=== PATIENT | female | born 1930 | race Caucasian/White ===

== ENCOUNTER 2017-03-27 12:51 | Inpatient (IN) | payer OTHER ==
--- NOTE | 2017-03-27 13:03 | EDPHY ---
H & P Time Seen by Provider: 03/27/17 12:57 HPI/ROS: CHIEF COMPLAINT: Abdominal pain HISTORY OF PRESENT ILLNESS: This patient is an 87 year old female with history of diverticulosis arriving with her daughter complaining of upper abdominal pain and vomiting onset Monday , three days ago. She states she was initially seen in [place] over the weekend after multiple episodes of vomiting, and has been taking Zofran to control nausea. She states she had lab tests done, but is unsure of the results , and did not receive any imaging at that time. She states the pain has been constant, and describes it as a "burning" feeling in her midepigastric region, spreading to her lower abdomen with oral intake. She reports feeling bloated and "burpy", and states she has not been able to eat much and has not had a bowel movement since Monday. Her daughter at bedside states she had abnormally dark urine as well, which the patient describes as dark orange in color. She endorses low grade fever. She denies history of abdominal surgery, dysuria, or pain radiating to her back. REVIEW OF SYSTEMS: Constitutional: Fever. No chills Eyes: No visual changes ENT: No sore throat Respiratory: No cough, no shortness of breath Cardiac: No chest pain Gastrointestinal: Nausea, vomiting, abdominal pain Genitourinary: Dark orange urine. No hematuria, no dysuria Musculoskeletal: No leg pain or swelling Skin: No rash Neurological: No headache, no numbness, no weakness Psychiatric: No depression Past Medical/Surgical History: Diverticulosis Atrial fibrillation Social History: Daughter at bedside. Lives in [place] Smoking Status: Never smoked Physical Exam: General Appearance: Alert, no distress Eyes: Pupils equal and round, no conjunctival pallor or injection ENT, Mouth: Mucous membranes moist Neck: Normal inspection Respiratory: Rales at bases. Cardiovascular: Regular rate and rhythm Gastrointestinal: Abdomen is soft. Decreased bowel sounds. Tenderness to right lower quadrant, right upper quadrant, and epigastrium Neurological: A&O, nonfocal, normal gait Extremities: Normal inspection Psychiatric: Mood and affect normal Constitutional: Initial Vital Signs Temperature (C) 36.8 C 03/27/17 12:51 Heart Rate 79 03/27/17 12:51 Respiratory Rate 18 03/27/17 12:51 Blood Pressure 128/73 H 03/27/17 12:51 O2 Sat (%) 92 03/27/17 12:51 O2 Delivery Mode Room Air Allergies/Adverse Reactions: No Known Allergies Allergy (Verified 03/27/17 15:39) Home Medications: Medication Instructions Recorded Aspirin EC [Aspirin EC 81 mg (*)] 81 mg PO DAILY 03/27/17 Atenolol [Tenormin 25 mg (*)] 25 mg PO DAILY PRN 03/27/17 Herbals/Supplements -Info Only 1 ea PO DAILY 03/27/17 Hydrochlorothiazide [HCTZ (*)] 25 mg PO DAILY 03/27/17 Levothyroxine [Synthroid 88 mcg 88 mcg PO DAILY06 03/27/17 (*)] Naproxen Sodium [Aleve 220 MG (*)] 220 mg PO DAILY 03/27/17 Omeprazole Magnesium [Prilosec Otc] 10 mg PO DAILY PRN 03/27/17 Medical Decision Making - Diagnostics Imaging Results: Imaging Impressions Abdomen CT 03/27/17 13:47 Impression: Findings suggest cholecystitis. Findings discussed with Rosi Ramey at 1447 hours, 03/27/2017. Final report concurs with initial preliminary interpretation. Imaging: Discussed imaging studies w/ solar engineer Radiologist ED Course/Re-evaluation: This patient is an 87 year old female presenting with three day history of abdominal pain, nausea, and vomiting. Physical exam reveals tenderness to her right upper and lower quadrants and epigastrium. Plan for CT abdomen and pelvis to assess for acute processes. Plan for labs including CBC, CMP, liver, and lipase. Plan to administer 1L IV NS for dehydration. 14:[address] Mancini, radiologist. Abdominal CT shows cholecystitis. CT results discussed with the patient and her daughter. Abdominal exam is unchanged. 14:[address] Pettit, general surgeon. He will come to consult with this patient. Administered 1gm IV Ertapenem. Morphine and Zofran IV given for pain control. Plan to admit for continued management of acute cholecystitis. Differential Diagnosis: The differential diagnosis for the patient's abdominal pain included but was not limited to urinary tract infection, cholecystitis, appendicitis, small bowel obstruction or perforation, diverticulitis. - Data Points Laboratory Results: Laboratory Results 03/27/17 13:30 03/27/17 13:30 03/27/17 03/27/17 13:30 13:30 WBC 20.01 10^3/uL H 10^3/uL (3.80-9.50) RBC 4.75 10^6/uL 10^6/uL (4.18-5.33) Hgb 14.5 g/dL g/dL (12.6-16.3) Hct 41.9 % % (38.0-47.0) MCV 88.2 fL fL (81.5-99.8) MCH 30.5 pg pg (27.9-34.1) MCHC 34.6 g/dL g/dL (32.4-36.7) RDW 13.2 % % (11.5-15.2) Plt Count 207 10^3/uL 10^3/uL (150-400) MPV 9.8 fL fL (8.7-11.7) Neut % (Auto) 68.6 % % (39.3-74.2) Lymph % (Auto) 21.8 % % (15.0-45.0) Pike % (Auto) 8.8 % % (4.5-13.0) Eos % (Auto) 0.1 % L % (0.6-7.6) Baso % (Auto) 0.2 % L % (0.3-1.7) Nucleat RBC Rel Count 0.0 % % (0.0-0.2) Absolute Neuts (auto) 13.71 10^3/uL H 10^3/uL (1.70-6.50) Absolute Lymphs (auto) 4.37 10^3/uL H 10^3/uL (1.00-3.00) Absolute Monos (auto) 1.76 10^3/uL H 10^3/uL (0.30-0.80) Absolute Eos (auto) 0.02 10^3/uL L 10^3/uL (0.03-0.40) Absolute Basos (auto) 0.04 10^3/uL 10^3/uL (0.02-0.10) Absolute Nucleated RBC 0.00 10^3/uL 10^3/uL (0-0.01) Immature Gran % 0.5 % % (0.0-1.1) Immature Gran # 0.11 10^3/uL H 10^3/uL (0.00-0.10) Sodium 125 mEq/L L mEq/L (134-144) Potassium 3.4 mEq/L L mEq/L (3.5-5.2) Chloride 90 mEq/L L mEq/L (97-110) Carbon Dioxide 24 mEq/l mEq/l (22-31) Anion Gap 11 mEq/L mEq/L (8-16) BUN 15 mg/dL mg/dL (7-23) Creatinine 0.6 mg/dL mg/dL (0.6-1.0) Estimated GFR > 60 Glucose 101 mg/dL H mg/dL (70-100) Calcium 8.7 mg/dL mg/dL (8.5-10.4) Total Bilirubin 1.4 mg/dL mg/dL (0.1-1.4) Conjugated Bilirubin 0.5 mg/dL mg/dL (0.0-0.5) Unconjugated Bilirubin 0.9 mg/dL mg/dL (0.0-1.1) AST 32 IU/L IU/L (14-46) ALT 39 IU/L IU/L (9-52) Alkaline Phosphatase 111 IU/L IU/L (38-126) Total Protein 5.8 g/dL L g/dL (6.3-8.2) Albumin 3.3 g/dL L g/dL (3.5-5.0) Lipase 47.0 IU/L IU/L (23-300) Medications Given: Discontinued Medications Sodium Chloride (Ns) 1,000 mls @ 0 mls/hr IV ONCE ONE; Wide Open PRN Reason: Protocol Stop: 03/27/17 13:59 Last Admin: 03/27/17 14:21 Dose: 1,000 mls Ertapenem 1 gm/ Sodium (Chloride) 100 mls @ 200 mls/hr IV EDNOW ONE PRN Reason: Protocol Stop: 03/27/17 15:24 Last Admin: 03/27/17 15:15 Dose: 100 mls Morphine Sulfate (Morphine) 4 mg IVP EDNOW ONE Stop: 03/27/17 15:29 Last Admin: 03/27/17 15:47 Dose: Not Given Ondansetron HCl (Zofran) 4 mg IVP EDNOW ONE Stop: 03/27/17 15:29 Last Admin: 03/27/17 15:48 Dose: Not Given Departure - Departure Disposition: [facility] Inpatient Acute Clinical Impression: Acute cholecystitis Condition: Fair Report Scribed for: Rosi Ramey Report Scribed by: Elizabeth Johnson Date of Report: 03/27/17 Time of Report: 13:02 Physician Review and Approval Statement: 03/27/17 13:10 Portions of this note were transcribed by a medical office manager. I personally performed a history, physical exam, medical decision making, and confirmed accuracy of information the transcribed note.
[2017-03-27 13:44] LABS: % IMMATURE GRANULYOCYTES 0.5 % (0.0-1.1); ABSOLUTE IMMATURE GRANULOCYTES 0.11 10^3/uL (0.00-0.10); ADD DIFF? NO; ADD MORPH? NO; ADD SCAN? NO; ATYPICAL LYMPHOCYTE FLAG 0 (0-99); FRAGMENT RBC FLAG 0 (0-99); HEMATOCRIT 41.9 % (38.0-47.0); HEMOGLOBIN 14.5 g/dL (12.6-16.3); LEFT SHIFT FLG 20 (0-99); LIPEMIA HEMOLYSIS FLAG 90 (0-99); MEAN CELL HEMOGLOBIN 30.5 pg (27.9-34.1); MEAN CELL HEMOGLOBIN CONCENTR. 34.6 g/dL (32.4-36.7); MEAN CELL VOLUME 88.2 fL (81.5-99.8); MEAN PLATELET VOLUME 9.8 fL (8.7-11.7); PLATELET CLUMPS FLAG 0 (0-99); PLATELET COUNT 207 10^3/uL (150-400); RED BLOOD CELL COUNT 4.75 10^6/uL (4.18-5.33); RED CELL DISTRIBUTION WIDTH 13.2 % (11.5-15.2)
[2017-03-27 13:56] LABS: ALANINE AMINOTRANSFERASE 39 IU/L (9-52); ALBUMIN 3.3 g/dL (3.5-5.0); ALKALINE PHOSPHATASE 111 IU/L (38-126); ANION GAP 11 mEq/L (8-16); ASPARTATE AMINOTRANSFERASE 32 IU/L (14-46); BILIRUBIN,TOTAL 1.4 mg/dL (0.1-1.4); BILIRUBIN-CONJUGATED 0.5 mg/dL (0.0-0.5); BILIRUBIN-UNCONJUGATED 0.9 mg/dL (0.0-1.1); CALCIUM 8.7 mg/dL (8.5-10.4); CARBON DIOXIDE 24 mEq/l (22-31); CHLORIDE 90 mEq/L (97-110); CREATININE 0.6 mg/dL (0.6-1.0); GLOMERULAR FILTRATION RATE > 60; GLUCOSE 101 mg/dL (70-100); POTASSIUM 3.4 mEq/L (3.5-5.2); SODIUM 125 mEq/L (134-144); TOTAL PROTEIN 5.8 g/dL (6.3-8.2)
[2017-03-27] MEDS ORDERED: NS 1,000 ML IV ONE (13:58)
[2017-03-27] MEDS ORDERED: IOPAMIDOL (ISOVUE-300) 100 ML BTL ONE (14:19)
[2017-03-27] MEDS ORDERED: ERTAPENEM 1 GM in NS 100 ML IV ONE (14:55)
[2017-03-27] MEDS: ONDANSETRON 4 MG/2 ML VIAL IVP ONE ×2 (15:47→15:48)
[2017-03-27] MEDS ORDERED: NS 1,000 ML IV SCH (18:00)
[2017-03-27 18:31] LABS: ANION GAP 8 mEq/L (8-16); CALCIUM 8.4 mg/dL (8.5-10.4); CARBON DIOXIDE 26 mEq/l (22-31); CHLORIDE 94 mEq/L (97-110); CREATININE 0.6 mg/dL (0.6-1.0); GLOMERULAR FILTRATION RATE > 60; GLUCOSE 86 mg/dL (70-100); POTASSIUM 3.2 mEq/L (3.5-5.2); SODIUM 128 mEq/L (134-144)
--- NOTE | 2017-03-27 18:38 | PDGENHP ---
History & Physical Chief Complaint: UPPER ABDOMINAL PAIN FOR 3 DAY History of Present Illness: 87-YEAR-OLD FEMALE WITH ABDOMINAL PAIN ASSOCIATED WITH NAUSEA AND VOMITING. SEEN IN THE ER WITH CT SCAN SHOWING ACUTE CHOLECYSTITIS [place] [address]. HE IS ADMITTED AT THIS TIME FOR LAP CHOLY. RISKS AND OPTIONS BEEN FULLY DISCUSSED AND SHE WISHED TO PROCEED. 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 MEDICATIONS NONE. NO KNOWN ALLERGIES. REVIEW OF SYSTEMS REVEALS NO OTHER MAJOR MEDICAL PROBLEMS ON IT FULL 10 POINT REVIEW OF SYSTEMS. FAMILY HISTORY IS NONCONTRIBUTORY Relevant Physical Exam: GENERAL HEALTHY 87-YEAR-OLD FEMALE NO ACUTE DISTRESS. HEENT WITHOUT ICTERUS, ADENOPATHY, OR ORAL LESIONS. CHEST CLEAR. CARDIAC EXAM REGULAR RHYTHM WITHOUT MURMURS. ABDOMEN SOFT WITH RIGHT UPPER QUADRANT TENDERNESS, POSITIVE BOWEL SOUNDS. EXTREMITIES ARE BENIGN WITH FULL PULSES. NEURO EXAM IS PHYSIOLOGIC. SKIN EXAM IS NEGATIVE Cardiorespiratory Assessment: PLAN IS LAP CHOLY. RISKS AND OPTIONS BEEN FULLY DISCUSSED AND SHE WISHED TO PROCEED.
[2017-03-27] MEDS ORDERED: ATENOLOL 25 MG TAB PO PRN (18:40)
[2017-03-27] MEDS ORDERED: BUPIVACAINE 0.5% 30 ML SDV ONE (19:24)
[2017-03-27] MEDS ORDERED: ceFAZolin 1 GM/5 ML SYR ONE ×2 (21:20→22:53)
[2017-03-27] MEDS ORDERED: HEPARIN 1000 UNIT/1 ML MDV ONE (21:20)
--- NOTE | 2017-03-27 21:33 | PDANEPAE ---
ANE Past Medical History - Pulmonary History Hx Oxygen in Use at Home: Yes O2 in Use at Home (L/minute): 2 - Endocrine History Hx Diabetes: No - Chronic Pain History Chronic Pain: Yes (L knee) ANE Review of Systems - Systems Cardiac: Reports: irregular heart rate Respiratory: Reports: other (probable sleep apnea) ANE Patient History - Allergies Allergies/Adverse Reactions: No Known Allergies Allergy (Verified 03/27/17 15:39) - Home Medications Home medications: home medication list seen and reviewed Home Medications: Aspirin EC [Aspirin EC 81 mg (*)] 81 mg PO DAILY 03/27/17 [Last Taken 03/26/17] Atenolol [Tenormin 25 mg (*)] 25 mg PO DAILY PRN 03/27/17 [Last Taken Unknown] Herbals/Supplements -Info Only 1 ea PO DAILY 03/27/17 [Last Taken Unknown] Hydrochlorothiazide [HCTZ (*)] 25 mg PO DAILY 03/27/17 [Last Taken 03/26/17] Levothyroxine [Synthroid 88 mcg (*)] 88 mcg PO DAILY06 03/27/17 [Last Taken ] Naproxen Sodium [Aleve 220 MG (*)] 220 mg PO DAILY 03/27/17 [Last Taken Unknown] Omeprazole Magnesium [Prilosec Otc] 10 mg PO DAILY PRN 03/27/17 [Last Taken Unknown] - NPO status NPO Since - Liquids (Date): 03/27/17 NPO Since - Liquids (Time): 12:00 NPO Since - Solids (Date): 03/27/17 NPO Since - Solids (Time): 07:00 - Smoking Hx Smoking Status: Never smoked ANE Labs/Vital Signs - Labs Result Diagrams: 03/27/17 13:30 03/27/17 17:38 - Vital Signs Blood Pressure: 136/76 Heart Rate: 69 Respiratory Rate: 16 O2 Sat (%): 92 Height: 160.02 cm Weight: 71.668 kg ANE Physical Exam - Airway Mouth exam: normal dental/mouth exam - Pulmonary Pulmonary: no respiratory distress - Cardiovascular Cardiovascular: regular rate and rhythym - ASA Status ASA Status: III ANE Anesthesia Plan Anesthesia Plan: general endotracheal anesthesia
[2017-03-27] MEDS ORDERED: PROPOFOL 200 MG/20 ML VIAL ONE (21:49)
[2017-03-27] MEDS ORDERED: fentaNYL 100 MCG/2 ML INJ ONE (21:49)
[2017-03-27] MEDS ORDERED: ROCURONIUM 50 MG/5 ML VIAL ONE (21:51)
[2017-03-27] MEDS ORDERED: ONDANSETRON 4 MG/2 ML VIAL ONE (21:51)
[2017-03-27] MEDS ORDERED: DEXAMETHASONE 4 MG/ML VIAL ONE (21:51)
[2017-03-27] MEDS ORDERED: SUGAMMADEX SODIUM 200 MG/2 ML VIAL IVP ONE (21:51)
[2017-03-27] MEDS ORDERED: LIDOCAINE 2% 5 ML SDV ONE (21:51)
[2017-03-27] MEDS ORDERED: PHENYLEPHRINE HCL 100 MCG/ML SYR ONE (22:12)
[2017-03-27] MEDS ORDERED: ENALAPRILAT DIHYDRATE 1.25 MG/ML VIAL IVP PRN (22:19)
[2017-03-27] MEDS ORDERED: NALOXONE HCL 0.4 MG/ML INJ IVP PRN (22:19)
[2017-03-27] MEDS ORDERED: ONDANSETRON 4 MG/2 ML VIAL IVP PRN (22:19)
[2017-03-27] MEDS ORDERED: HYDROCODONE/APAP 5/325 TAB PO PRN (22:19)
[2017-03-27] MEDS ORDERED: PROMETHAZINE HCL 25 MG/ML INJ IVP PRN (22:19)
[2017-03-27] MEDS ORDERED: fentaNYL 100 MCG/2 ML INJ IVP PRN (22:19)
--- NOTE | 2017-03-27 23:12 | POSTOPPROG ---
Post Op Note Date of Operation: 03/27/17 Surgeon: Mata Pettit Anesthesiologist: ankit Anesthesia: GET(General Endotracheal) Pre-op Diagnosis: acute cholecystitis Post-op Diagnosis: same with hydrops Indication: pain Procedure: lap choley Findings: acute, necrotic hydrops gallbladder Inf/Abcess present in the surg proc area at time of surgery?: Yes Depth: Organ Space EBL: 50-100 Complications: 0 Specimen(s): gallbladder and culture
[2017-03-27] MEDS ORDERED: OXYCODONE/APAP 5/325 TAB PO PRN (23:14)
--- NOTE | 2017-03-27 23:22 | POSTANESTH ---
Post Anesthetic Evaluation Cardiovascular Status: Normal, Stable, Similar to Pre-Op Cond Respiratory Status: Normal, Stable, Similar to Pre-op Cond. Level of Consciousness/Mental Status: Can Participate in Eval, Mildly Sleepy, Arousable Pain Control: Adequate, Prn Tx Ordered Nausea/Vomiting Control: Adequate, Prn Tx Ordered Complications Possibly Related to Anesthesia: None Noted
[2017-03-28] MEDS: D5W 1/2 NS W/ 20 KCl/L 1,000 ML IV SCH ×3 (00:15→16:29)
[2017-03-28] MEDS: HYDROmorphONE/DILAUDID 1 MG/ML SYR IVP PRN ×6 (00:28→19:46)
[2017-03-28] MEDS: LEVOTHYROXINE 88 MCG TAB PO SCH (04:19)
[2017-03-28 05:48] LABS: % IMMATURE GRANULYOCYTES 0.2 % (0.0-1.1); ABSOLUTE IMMATURE GRANULOCYTES 0.02 10^3/uL (0.00-0.10); ADD DIFF? NO; ADD MORPH? NO; ADD SCAN? YES; ATYPICAL LYMPHOCYTE FLAG 0 (0-99); FRAGMENT RBC FLAG 0 (0-99); HEMATOCRIT 40.3 % (38.0-47.0); HEMOGLOBIN 13.6 g/dL (12.6-16.3); LIPEMIA HEMOLYSIS FLAG 80 (0-99); MEAN CELL HEMOGLOBIN 30.2 pg (27.9-34.1); MEAN CELL HEMOGLOBIN CONCENTR. 33.7 g/dL (32.4-36.7); MEAN CELL VOLUME 89.6 fL (81.5-99.8); MEAN PLATELET VOLUME 10.4 fL (8.7-11.7); PLATELET CLUMPS FLAG 0 (0-99); PLATELET COUNT 210 10^3/uL (150-400); RED CELL DISTRIBUTION WIDTH 13.3 % (11.5-15.2)
[2017-03-28 05:50] LABS: ALANINE AMINOTRANSFERASE 78 IU/L (9-52); ALBUMIN 2.5 g/dL (3.5-5.0); ALKALINE PHOSPHATASE 96 IU/L (38-126); AMYLASE 55 IU/L (30-110); ANION GAP 8 mEq/L (8-16); ASPARTATE AMINOTRANSFERASE 95 IU/L (14-46); BILIRUBIN-CONJUGATED 0.5 mg/dL (0.0-0.5); BILIRUBIN-UNCONJUGATED 0.5 mg/dL (0.0-1.1); CALCIUM 8.1 mg/dL (8.5-10.4); CARBON DIOXIDE 22 mEq/l (22-31); CHLORIDE 100 mEq/L (97-110); CREATININE 0.6 mg/dL (0.6-1.0); GLOMERULAR FILTRATION RATE > 60; GLUCOSE 196 mg/dL (70-100); POTASSIUM 3.6 mEq/L (3.5-5.2); SODIUM 130 mEq/L (134-144); TOTAL PROTEIN 4.9 g/dL (6.3-8.2)
[2017-03-28 05:55] LABS: LEFT SHIFT FLG 230 (0-99)
[2017-03-28 07:06] LABS: SCAN NEGATIVE
[2017-03-28] MEDS: ERTAPENEM 1 GM in NS 100 ML IV SCH (08:26)
--- NOTE | 2017-03-28 13:59 | SOAPPROG ---
SOAP Progress Note Assessment/Plan: Assessment: WOUND OK/ AFEBRILE/ SOME PAIN/ TOLERATING CLEARS ABD SOFT LABS STABLE Plan:ADVANCE DIET 03/28/17 13:58 Objective: Vital Signs Temp Pulse Resp BP Pulse Ox 36.6 C 80 16 117/71 93 03/28/17 11:45 03/28/17 11:45 03/28/17 11:45 03/28/17 11:45 03/28/17 11:45 Microbiology 03/27/17 22:47 Gram Stain - Final Gallbladder - Anaerobic Tube/Swab Laboratory Results 03/28/17 04:15 03/28/17 04:24 03/27/17 03/28/17 03/29/17 05:59 05:59 05:59 Intake Total 2790 Output Total 30 50 Balance 2760 -50 ICD10 Worksheet Patient Problems: Problems Problem Status Onset Acute cholecystitis Acute
[2017-03-28] MEDS ORDERED: METOCLOPRAMIDE 10 MG/2 ML VIAL IV PRN (23:17)
[2017-03-28] MEDS: CALCIUM CARBONATE 500 MG CHEWABLE TAB PO PRN (23:49)
[2017-03-28] MEDS: PANTOPRAZOLE SODIUM 40 MG TAB PO PRN (23:50)
[2017-03-29] MEDS: KETOROLAC 30 MG/1 ML SDV IVP PRN ×2 (00:12→07:51)
[2017-03-29] MEDS: D5W 1/2 NS W/ 20 KCl/L 1,000 ML IV SCH (00:12)
[2017-03-29] MEDS: LEVOTHYROXINE 88 MCG TAB PO SCH (06:43)
[2017-03-29] MEDS: ASPIRIN EC 81 MG TAB PO SCH (08:16)
[2017-03-29] MEDS: CALCIUM CARBONATE 500 MG CHEWABLE TAB PO PRN ×2 (08:16→14:33)
[2017-03-29] MEDS: ERTAPENEM 1 GM in NS 100 ML IV SCH (08:20)
[2017-03-29] MEDS ORDERED: ACETAMINOPHEN 325 MG TAB PO PRN (12:34)
--- NOTE | 2017-03-29 12:39 | PDIAF ---
- Diagnosis Diagnosis: s/p laparoscopic cholecystectomy Code Status: Full Code - Medication Management Discharge Medications: Medications to Continue on Transfer Aspirin EC [Aspirin EC 81 mg (*)] 81 mg PO DAILY 03/27/17 [Last Taken 03/26/17] Atenolol [Tenormin 25 mg (*)] 25 mg PO DAILY PRN 03/27/17 [Last Taken Unknown] Herbals/Supplements -Info Only 1 ea PO DAILY 03/27/17 [Last Taken Unknown] Hydrochlorothiazide [HCTZ (*)] 25 mg PO DAILY 03/27/17 [Last Taken 03/26/17] Levothyroxine [Synthroid 88 mcg (*)] 88 mcg PO DAILY06 03/27/17 [Last Taken ] Omeprazole Magnesium [Prilosec Otc] 10 mg PO DAILY PRN 03/27/17 [Last Taken Unknown] Acetaminophen [Tylenol 325mg (*)] 650 mg PO Q6HRS PRN #0 tab 03/29/17 [Last Taken Unknown] Calcium Carbonate [Tums 500MG (*)] 500 - 1,000 mg PO Q1 PRN #0 tab.chew [Last Taken Unknown] Ibuprofen [Motrin (*)] 600 mg PO Q6HRS PRN #40 tab 03/29/17 [Last Taken Unknown] Usp Antibiotics: N/A Discharge Medications: Refer to the Discharge Home Medication list for PRN reason. PICC Care - Routine: N/A - Orders Oxygen: home O2 arranged Diet Recommendation: no restrictions on diet Diet Texture: Regular Texture Diet Nicolas: Not applicable Wound Care Instructions: leave steri strips on until they fall off Activity/Weight Bearing Restrictions: no lifting over 15 lbs. ok to shower. - Follow Up Care Current Providers and Referrals: Meera Galvin MD [Primary Care Provider] - As per Instructions Mata Pettit MD [Medical Doctor] - follow up in 2 weeks
--- NOTE | 2017-03-29 12:41 | SOAPPROG ---
SOAP Progress Note Assessment/Plan: Assessment/Plan: 87 Y F s/p lap fariba, POD#2. Doing well. Pain and burning better with Tums and toradol. Does not like narcotics. D/c toradol and start tylenol, ibuprofen. Home O2. ([place] failed [place], [place], 92% on 2 L now) PT/OT elval today. Buff cap IV. Advance diet. S: less pain. feeling better. does not want snf--lives alone in [place]. O: alert, nad no jaundice ctab rrr abd soft, inc cdi, +BS 03/29/17 12:39 Objective: Vital Signs Temp Pulse Resp BP Pulse Ox 36.8 C 71 19 138/66 H 94 03/29/17 12:20 03/29/17 12:20 03/29/17 12:20 03/29/17 12:20 03/29/17 12:20 Microbiology 03/27/17 22:47 Gram Stain - Final Gallbladder - Anaerobic Tube/Swab Laboratory Results 03/28/17 04:15 03/28/17 04:24 03/28/17 03/29/17 03/30/17 05:59 05:59 05:59 Intake Total 1840 8048 Output Total 30 50 Balance 0671 4776 ICD10 Worksheet Patient Problems: Problems Problem Status Onset Acute cholecystitis Acute
[2017-03-29] MEDS: IBUPROFEN 600 MG TAB PO PRN ×2 (14:29→23:14)
[2017-03-29] MEDS: PANTOPRAZOLE SODIUM 40 MG TAB PO PRN (23:14)
[2017-03-30] MEDS: LEVOTHYROXINE 88 MCG TAB PO SCH (06:03)
[2017-03-30] MEDS: IBUPROFEN 600 MG TAB PO PRN ×2 (06:11→20:09)
[2017-03-30] MEDS: ASPIRIN EC 81 MG TAB PO SCH (08:30)
[2017-03-30] MEDS: CALCIUM CARBONATE 500 MG CHEWABLE TAB PO PRN ×2 (08:30→20:10)
[2017-03-30] MEDS ORDERED: D5W 1/2 NS 1,000 ML IV SCH (09:00)
--- NOTE | 2017-03-30 09:22 | SOAPPROG ---
SOAP Progress Note Assessment/Plan: Assessment: WOUND OK/ AFEBRILE/ SOME PAIN/ TOLERATING CLEARS ABD SOFT LABS STABLE Plan:ADVANCE DIET 03/28/17 13:58 03/30/17 09:20 feeling better but eating poorly/ co esophageal burning/ abd soft, nontender, wounds ok/ afebrile not ready for discharge/ advance diet Objective: Vital Signs Temp Pulse Resp BP Pulse Ox 36.8 C 80 18 130/67 H 91 L 03/30/17 08:30 03/30/17 08:30 03/30/17 08:30 03/30/17 08:30 03/30/17 08:30 Microbiology 03/27/17 22:47 Gram Stain - Final Gallbladder - Anaerobic Tube/Swab Laboratory Results 03/28/17 04:15 03/28/17 04:24 03/29/17 03/30/17 03/31/17 05:59 05:59 05:59 Intake Total 1416 880 Output Total 50 Balance 3675 880 ICD10 Worksheet Patient Problems: Problems Problem Status Onset Acute cholecystitis Acute
[2017-03-30] MEDS: ERTAPENEM 1 GM in NS 100 ML IV SCH (10:21)
[2017-03-30] MEDS: PANTOPRAZOLE SODIUM 40 MG TAB PO SCH (10:21)
[2017-03-30 12:12] LABS: % IMMATURE GRANULYOCYTES 1.9 % (0.0-1.1); ABSOLUTE IMMATURE GRANULOCYTES 0.26 10^3/uL (0.00-0.10); ADD DIFF? NO; ADD MORPH? NO; ADD SCAN? NO; ATYPICAL LYMPHOCYTE FLAG 0 (0-99); FRAGMENT RBC FLAG 0 (0-99); HEMATOCRIT 34.2 % (38.0-47.0); HEMOGLOBIN 11.4 g/dL (12.6-16.3); LEFT SHIFT FLG 30 (0-99); LIPEMIA HEMOLYSIS FLAG 80 (0-99); MEAN CELL HEMOGLOBIN 30.4 pg (27.9-34.1); MEAN CELL HEMOGLOBIN CONCENTR. 33.3 g/dL (32.4-36.7); MEAN CELL VOLUME 91.2 fL (81.5-99.8); MEAN PLATELET VOLUME 9.5 fL (8.7-11.7); PLATELET CLUMPS FLAG 0 (0-99); PLATELET COUNT 222 10^3/uL (150-400); RED BLOOD CELL COUNT 3.75 10^6/uL (4.18-5.33); RED CELL DISTRIBUTION WIDTH 13.5 % (11.5-15.2)
[2017-03-30 12:51] LABS: ALANINE AMINOTRANSFERASE 136 IU/L (9-52); ALBUMIN 2.4 g/dL (3.5-5.0); ALKALINE PHOSPHATASE 178 IU/L (38-126); AMYLASE 37 IU/L (30-110); ANION GAP 6 mEq/L (8-16); ASPARTATE AMINOTRANSFERASE 156 IU/L (14-46); BILIRUBIN-CONJUGATED 0.5 mg/dL (0.0-0.5); BILIRUBIN-UNCONJUGATED 0.5 mg/dL (0.0-1.1); CARBON DIOXIDE 22 mEq/l (22-31); CHLORIDE 100 mEq/L (97-110); CREATININE 0.5 mg/dL (0.6-1.0); GLOMERULAR FILTRATION RATE > 60; GLUCOSE 117 mg/dL (70-100); POTASSIUM 3.9 mEq/L (3.5-5.2); SODIUM 128 mEq/L (134-144); TOTAL PROTEIN 4.7 g/dL (6.3-8.2)
[2017-03-31] MEDS: LEVOTHYROXINE 88 MCG TAB PO SCH (06:00)
[2017-03-31] MEDS: PANTOPRAZOLE SODIUM 40 MG TAB PO SCH (09:39)
[2017-03-31] MEDS: ASPIRIN EC 81 MG TAB PO SCH (09:39)
[2017-03-31] MEDS: ERTAPENEM 1 GM in NS 100 ML IV SCH (09:39)
--- NOTE | 2017-03-31 11:33 | SOAPPROG ---
SOAP Progress Note Assessment/Plan: Assessment: WOUND OK/ AFEBRILE/ SOME PAIN/ TOLERATING CLEARS ABD SOFT LABS STABLE Plan:ADVANCE DIET 03/28/17 13:58 03/30/17 09:20 feeling better but eating poorly/ co esophageal burning/ abd soft, nontender, wounds ok/ afebrile not ready for discharge/ advance diet 03/31/17 11:32 MUCH IMPROVED TODAY/AFEBRILE/NONICTERIC/WOUND OKAY/ PROBABLY HOME TODAY ON OXYGEN Objective: Vital Signs Temp Pulse Resp BP Pulse Ox 36.5 C 77 18 142/81 H 86 L 03/31/17 08:00 03/31/17 08:00 03/31/17 08:00 03/31/17 08:00 03/31/17 10:01 Microbiology 03/27/17 22:47 Gram Stain - Final Gallbladder - Anaerobic Tube/Swab Laboratory Results 03/30/17 11:55 03/30/17 11:55 03/30/17 03/31/17 04/01/17 05:59 05:59 05:59 Intake Total 880 2350 Output Total 1999 Balance 880 350 ICD10 Worksheet Patient Problems: Problems Problem Status Onset Acute cholecystitis Acute
[2017-03-31 12:23] VITALS: BP 114/58; PULSE 70; RESP 17; TEMP 98; O2SAT 92
--- NOTE | 2017-03-31 15:33 | PDIAF ---
- Diagnosis Diagnosis: s/p laparoscopic cholecystectomy Code Status: Full Code - Medication Management Discharge Medications: Medications to Continue on Transfer Aspirin EC [Aspirin EC 81 mg (*)] 81 mg PO DAILY 03/27/17 [Last Taken 03/26/17] Atenolol [Tenormin 25 mg (*)] 25 mg PO DAILY PRN 03/27/17 [Last Taken Unknown] Herbals/Supplements -Info Only 1 ea PO DAILY 03/27/17 [Last Taken Unknown] Hydrochlorothiazide [HCTZ (*)] 25 mg PO DAILY 03/27/17 [Last Taken 03/26/17] Levothyroxine [Synthroid 88 mcg (*)] 88 mcg PO DAILY06 03/27/17 [Last Taken ] Omeprazole Magnesium [Prilosec Otc] 10 mg PO DAILY PRN 03/27/17 [Last Taken Unknown] Acetaminophen [Tylenol 325mg (*)] 650 mg PO Q6HRS PRN #0 tab 03/29/17 [Last Taken Unknown] Calcium Carbonate [Tums 500MG (*)] 500 - 1,000 mg PO Q1 PRN #0 tab.chew [Last Taken Unknown] Ibuprofen [Motrin (*)] 600 mg PO Q6HRS PRN #40 tab 03/29/17 [Last Taken Unknown] Snf Antibiotics: N/A Discharge Medications: Refer to the Discharge Home Medication list for PRN reason. PICC Care - Routine: N/A - Orders Services needed: Home Care, Physical Therapy, Occupational Therapy Home Care Face to Face: I certify that this patient was under my care and that I had the required [id number] encounter meeting the encounter requirements on the discharge day. My findings support the fact that the patient is homebound as defined in CMS Chapter 7 Medicare Benefits Manual 30.1.1, The condition of the patient is such that there exists a normal inability to leave home and consequently, leaving home would require a considerable and taxing effort. Oxygen: home O2 arranged Diet Recommendation: no restrictions on diet Diet Texture: Regular Texture Diet Nicolas: Not applicable Wound Care Instructions: leave steri strips on until they fall off Activity/Weight Bearing Restrictions: no lifting over 15 lbs. ok to shower. - Follow Up Care Current Providers and Referrals: Meera Galvin MD [Primary Care Provider] - As per Instructions Mata Pettit MD [Medical Doctor] - follow up in 2 weeks
--- NOTE | 2017-04-02 19:42 | GOP ---
[f rep st] OPERATIVE REPORT DATE OF OPERATION: 03/27/2017 SURGEON: aMta Pettit MD CAMPAIGN FUNDRAISER: None. ANESTHESIOLOGIST: Dr. Blackburn. PREOPERATIVE DIAGNOSIS: Acute cholecystitis. POSTOPERATIVE DIAGNOSIS: Acute cholecystitis. PROCEDURE PERFORMED: Laparoscopic cholecystectomy. FINDINGS: The patient was found to have a hydrops necrotic gallbladder completely obscured and cove red with omental adhesions with small ducts. DESCRIPTION OF PROCEDURE: The patient was taken to the operating room, received satisfactory genera l endotracheal anesthesia by Dr. Blackburn, placed in supine position, prepped and draped in usual steri le fashion. A periumbilical incision was made. A Veress needle inserted. Pneumoperitoneum was est ablished. Trocar was introduced. Laparoscope introduced. Good visualization was obtained. Two ot her trocars were placed in the upper abdomen under direct vision. The gallbladder was elevated up. It was completely obscured, and the omentum and colon were dissected off the gallbladder and retrac danyell away. The gallbladder was elevated up. The cystic triangle was carefully exposed by taking jona n adhesions, it from the duodenum. Cystic triangle was carefully exposed. The cystic du ct and cystic artery were isolated with care to avoid injury to the common bile duct, multiply hemoc lipped and divided, again with care to avoid injury to the common bile duct. Peritoneum of the gall bladder was incised. The gallbladder was dissected free in the bed and hepatic fossa, and extracted through the upper midline port site. The colon was quite necrotic. Hemostasis was carefully obtai chucho. The wound was irrigated. Tk powder was placed in the gallbladder bed. Hemostasis was ass ured. Trocars were removed under direct vision. Trocar sites were closed with 0 Vicryl for the fas yuniel and skin kris for the skin. All layers infiltrated with 0.5% Marcaine. She tolerated the pr ocedure well, taken to the recovery room in good condition. /[id number]/MODL
== END 2017-03-31 17:09 | disposition home health service (06) | DRG 418 ==
LOC: F2W 16:16
PROVIDERS: ADMIT Surgery; ATTEND Surgery
DX: K80.01 Calculus of gallbladder with acute cholecystitis with obstruction (principal); K82.1 Hydrops of gallbladder; I48.91 Unspecified atrial fibrillation; R10.13 Epigastric pain; B96.20 Unspecified Escherichia coli [E. coli] as the cause of diseases classified elsewhere; Z99.81 Dependence on supplemental oxygen; Z96.653 Presence of artificial knee joint, bilateral; Z96.649 Presence of unspecified artificial hip joint
CPT/HCPCS: 96365; 97116-GP; 97161-GP; 97165-GO; 97530-GP; 97535-GO; G8978-GP-CI; G8979-GP-CI; G8987-GO-CJ; G8988-GO-CH; J1100; J1170; J1335; J1885; J2370; J2405; J2704; J2765; J3010; Q9967